=== PATIENT | female | born 1965 | race Caucasian/White ===

== ENCOUNTER 2019-09-19 16:05 | Emergency (ER) | payer SELFPAY ==
[~2019-09-19] VITALS: Ht 152.4 cm; Wt 48.6 kg
[2019-09-19 16:29] LABS: BILIRUBIN,URINE NEGATIVE (NEG); CLARITY,URINE CLEAR; NITRITE,URINE NEGATIVE (NEG); PH,URINE 5.5 (<5.0-8.0); PROTEIN,URINE NEGATIVE (NEG-TRACE); UROBILINOGEN,URINE 0.2 mg/dL (0.2 mg/dL)
[2019-09-19 16:34] LABS: BARBITURATES NEG (NEG); BENZODIAZEPINES NEG (NEG); CANNABINOIDS NEG (NEG); COCAINE NEG (NEG); METHADONE NEG (NEG); OPIATES NEG (NEG); PHENCYCLIDINE NEG (NEG)
[2019-09-19 16:37] LABS: COLOR,URINE STRAW
[2019-09-19 16:38] LABS: AMPHETAMINE/METHAMPHETAMINE NEG (NEG)
[2019-09-19 16:42] LABS: BACTERIA,URINE MODERATE /HPF (0-FEW); RBC,URINE 0 /HPF (0-2); SQUAMOUS EPITHELIAL CELL,UR MOD /LPF
--- NOTE | 2019-09-19 16:55 | PHYS DOC ---
Past Medical History Past Medical History: Anxiety, Depression, Hypertension Past Surgical History: Hysterectomy Additional Past Surgical Histo: Bilat CTR, BREAST REDUCTION, B ROTATOR CUFFx2, L ankle Smoking Status: Light Tobacco Smoker Alcohol Use: Occasionally Social History Narrative: MUSHROOMS General Adult EDM: Chief Complaint: HALLUCINATIONS AUDIBLE/VISUAL HPI: HPI: Patient is a 54 year old female with a history of past depression, current anxiety and high blood pressure, accompanied by her daughter who presents to the emergency department with reports of having auditory and visual hallucinations for the last 8 to 9 days. Patient states she began seeing people and animals that were not actually there and hearing different chatter. She denies hearing the voices tell her to hurt herself or hurt others. Patient states she had been experiencing the hallucinations for about 3 days when she found some leftover psychedelic mushrooms and at home. She states that she took the mushrooms in order to get the voices and visual hallucinations to stop. However his problems have only increased since she ate the mushrooms about 5 days ago. She denies any chest pain, nausea, vomiting, diarrhea, abdominal pain, shortness of breath, wheezing, fever, body aches, or weakness. Patient states she has been having difficulty sleeping for several weeks. She reports that she is unable to settle down to go to sleep because her mind will just not stop thinking. She currently denies any pain. Patient reports that in the past she took medication for depression but at this time the only medication she takes her lisinopril, Soma, and Xanax. Per patient's daughter pt has been seen twice in the ER in [place] this week for hallucinations and a cat bite. Yesterday the patient was at an ER in [place] and had lab work done that was normal. Earlier she was seen at an ER and had a normal head CT. PT has been taking antibiotics for a cat bite on her right palm for the last 3 days. Daughter reports that the bite was from a feral cat that was caught after the incident. Review of Systems: Review of Systems: Constitutional: Denies fever or chills. [] Eyes: Denies change in visual acuity; see HPI. [] HENT: Denies nasal congestion or sore throat. [] Respiratory: Denies cough or shortness of breath. [] Cardiovascular: Denies chest pain or edema. [] GI: Denies abdominal pain, nausea, vomiting, or diarrhea. [] : Denies dysuria. [] Musculoskeletal: Denies back pain or joint pain. [] Integument: Denies rash. [] Neurologic: Denies headache, focal weakness; see HPI Endocrine: Denies polyuria or polydipsia. [] Psychiatric: Denies depression; see HPI Heart Score: Risk Factors: Risk Factors: DM, Current or recent (<one month) smoker, HTN, HLP, family history of CAD, obesity. Risk Scores: Score 0 - 3: 2.5% MACE over next 6 weeks - Discharge Home Score 4 - 6: 20.3% MACE over next 6 weeks - Admit for Clinical Observation Score 7 - 10: 72.7% MACE over next 6 weeks - Early Invasive Strategies Allergies: Allergies: Allergies Coded Allergies Type Severity Reaction Last Updated Verified No Known Drug Allergies 09/19/19 No Physical Exam: PE: Constitutional: Well developed, well nourished, no acute distress, non-toxic appearance. [] HENT: Normocephalic, atraumatic, bilateral external ears normal, nose normal. [] Eyes: PERRLA, EOMI, conjunctiva normal, no discharge. [] Neck: Normal range of motion, no stridor. [] Cardiovascular:Heart rate regular rhythm Lungs & Thorax: Respirations even and unlabored, no retractions, no respiratory distress Abdomen: soft, no tenderness Skin: Warm, dry, no erythema, no rash; 2 healing puncture wounds noted to palmar aspect of R hand, no drainage or abscess noted. Extremities: No cyanosis, no clubbing, ROM intact, no edema. [] Neurologic: Alert and oriented to person, place, and president; patient is confused to day of the week only, normal motor function, normal sensory function, no focal deficits noted. [] Psychologic: Affect paranoid, judgement normal, mood anxious Current Patient Data: Labs: Laboratory Tests Test 09/19/19 16:10 Urine Collection Type Unknown Urine Color Straw Urine Clarity Clear Urine pH 5.5 (<5.0-8.0) Urine Specific [place] <=1.005 (1.000-1.030) Urine Protein Negative mg/dL (NEG-TRACE) Urine Glucose (UA) Negative mg/dL (NEG) Urine Ketones (Stick) Negative mg/dL (NEG) Urine Blood Negative (NEG) Urine Nitrite Negative (NEG) Urine Bilirubin Negative (NEG) Urine Urobilinogen Dipstick 0.2 mg/dL (0.2 mg/dL) Urine Leukocyte Esterase Moderate (NEG) Urine RBC 0 /HPF (0-2) Urine WBC 5-10 /HPF (0-4) Urine Squamous Epithelial Cells Mod /LPF Urine Bacteria Moderate /HPF (0-FEW) Urine Opiates Screen Neg (NEG) Urine Methadone Screen Neg (NEG) Urine Barbiturates Neg (NEG) Urine Phencyclidine Screen Neg (NEG) Urine Amphetamine/Methamphetamine Neg (NEG) Urine Benzodiazepines Screen Neg (NEG) Urine Cocaine Screen Neg (NEG) Urine Cannabinoids Screen Neg (NEG) Urine Ethyl Alcohol Neg (NEG) Vital Signs: Vital Signs Date Time Temp Pulse Resp B/P (MAP) Pulse Ox O2 Delivery O2 Flow Rate FiO2 09/19/19 16:24 98.0 108 18 165/92 (116) 95 Room Air 98.0 EKG: EKG: [] Radiology/Procedures: Radiology/Procedures: [] Course & Med Decision Making: Course & Med Decision Making Pertinent Labs and Imaging studies reviewed. (See chart for details) 1843- Spoke with Dr. Presley will speak to Dr. Shultz for recommendations on medication management for hallucinations. 1899- Spoke with psychiatrist Dr. Shultz who recommends placing the patient on Risperdal 1 mg PO BID at this time. Pt should follow up with her PCP next week. I will notify Dr. Presley of his recommendation. 1942- Spoke with Dr. Presley and informed him of recommendation of Dr. Shultz pt was given first dose of risperdal in the ER and prescription for 10 day supply written. Will have the patient follow up in his office next week. [] Dragon Disclaimer: Dragon Disclaimer: This electronic medical record was generated, in whole or in part, using a voice recognition dictation system. Departure Departure Impression: Primary Impression: Hallucinations, visual Additional Impression: Auditory hallucinations Disposition: 01 HOME, SELF-CARE Condition: STABLE Referrals: SHAE PRESLEY MD (PCP) Patient Instructions: Hallucinations and Delusions Additional Instructions: Fill the prescription and take as directed. Follow up with Dr. Presley next week. Return to the ER if symptoms worsen. Follow up with a psychiatrist using the resources provided to you by the mental health video and sound recorder you spoke with in the ER. Scripts Risperidone (RISPERDAL) 1 Mg Tablet 1 MG PO BID for MOOD STABILIZER for 10 Days, #20 TAB 0 Refills Prov: CASSIA URIARTE APRN 09/19/19 CASSIA URIARTE APRN September 19, 2019 16:55
[2019-09-19 16:58] LABS: BASO # 0.1 x10^3/uL (0.0-0.2); BASO % 1 % (0-3); EOS # 0.1 x10^3/uL (0.0-0.7); EOS % 1 % (0-3); HEMATOCRIT 40.1 % (36.0-47.0); HEMOGLOBIN 13.6 g/dL (12.0-15.5); LYMPH # 3.2 x10^3/uL (1.0-4.8); LYMPH % 34 % (24-48); MEAN CORPUSCULAR HEMOGLOBIN 31 pg (25-35); MEAN CORPUSCULAR HGB CONC 34 g/dL (31-37); MEAN CORPUSCULAR VOLUME 91 fL (79-100); MONO # 1.2 x10^3/uL (0.0-1.1); MONO % 13 % (0-9); NEUT # 4.9 x10^3/uL (1.8-7.7); NEUT % 52 % (31-73); PLATELET COUNT 335 x10^3/uL (140-400); RED BLOOD COUNT 4.41 x10^6/uL (3.50-5.40); RED CELL DISTRIBUTION WIDTH 13.4 % (11.5-14.5); WHITE BLOOD COUNT 9.4 x10^3/uL (4.0-11.0)
[2019-09-19 17:11] LABS: POTASSIUM 3.8 mmol/L (3.5-5.1)
[2019-09-19 17:22] LABS: ALBUMIN 4.1 g/dL (3.4-5.0); ALBUMIN/GLOBULIN RATIO 1.4 (1.0-1.7); TOTAL BILIRUBIN 0.3 mg/dL (0.2-1.0)
[2019-09-19] MEDS ORDERED: risperiDONE 1 MG TABLET. PO ONE (19:15)
[2019-09-19] MEDS ORDERED: RISP1TAB43 PO (19:41)
[2019-09-19 19:58] VITALS: BP 121/72
== END 2019-09-19 19:55 | disposition home or self-care (01) ==
LOC: ER 16:05
DX: R44.0 Auditory hallucinations (principal); R44.1 Visual hallucinations; I10 Essential (primary) hypertension; Z72.0 Tobacco use
CPT/HCPCS: 36415; 80053; 80307; 81001; 85025; 87086; 99283; G0480; 99284